=== PATIENT | female | born 1935 | race Caucasian/White ===

== ENCOUNTER 2021-08-10 09:12 | Emergency (ER) | payer MEDICARE, BC ==
[2021-08-10 09:18] VITALS: BP 134/74; PULSE 79
--- NOTE | 2021-08-10 10:26 | EDM.PDOC ---
ED HPI GENERAL MEDICAL PROBLEM - General Chief Complaint: General Stated Complaint: nausea Time Seen by Provider: 08/10/21 09:45 Source of Information: Reports: Patient, Family History Limitations: Reports: No Limitations - History of Present Illness INITIAL COMMENTS - FREE TEXT/NARRATIVE: Patient brought to ER by daughter. [id number] is concerned that her mother "hasn't been herself" for last few weeks. Memory has not been as sharp/thinking has been a bit more foggy. Change coincided with starting Zoloft within the last month. 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 Has hx anxiety. Worse anxiety per [id number] recently as Vane Mohan may ask patient to move to a [facility] because of sight issue. Zoloft prescribed to try to assist with the anxiety. Mild nausea noted by patient when she woke this morning/resolved. Patient also was complaining of some facial numbness today (also resolved) and this led to DIL wanting patient to come to ER. Patient told nurse she did not know why she had to come to ER. She states she feels fine and there is nothing acutely wrong. No other reported changes. No other changes in medicines/supplements per patient. - Related Data Allergies Allergy/AdvReac Type Severity Reaction Status Date / Time brimonidine tartrate Allergy Rash Verified 08/10/21 11:01 [From Alphagan P] codeine Allergy Other Verified 08/10/21 11:02 Penicillins Allergy Hives Verified 08/10/21 11:01 Home Meds: Home Meds metFORMIN HCl [Metformin HCl] 1 tab PO BID 11/15/15 [History] Acetaminophen [Tylenol Extra Strength] 1 tab PO Q6H PRN 08/10/21 [History] Aspirin 325 mg PO DAILY 08/10/21 [History] Carboxymethylcellulos/Glycerin [Refresh Optive Gel Eye Drops] 1 drop .XX BID 08/10/21 [History] Carboxymethylcellulos/Glycerin [Refresh Optive] 1 drop EYEBOTH ASDIRECTED PRN 08/10/21 [History] Carboxymethylcellulose Sodium [Refresh Liquigel 1%] 0 applic .XX BEDTIME 08/10/21 [History] Cholecalciferol (Vitamin D3) [Vitamin D3] 1 tab PO BID 08/10/21 [History] Dorzolamide HCl 1 drop EYEBOTH BID 08/10/21 [History] Fluorometholone [Fluorometholone 0.1% Ophth Susp] 1 drop EYEBOTH BID 08/10/21 [History] L.acidoph,Paracasei, B.lactis [Probiotic] 1 tab PO BID 08/10/21 [History] Losartan [Cozaar] 25 mg PO QPM 08/10/21 [History] Lutein/Minerals/Vit A,C & E [Ocuvite] 1 tab PO DAILY 08/10/21 [History] Magnesium Oxide [Mag-Oxide Magnesium] 40 mg PO BID 08/10/21 [History] Omeprazole Magnesium [Prilosec Otc] 20 mg PO BID 08/10/21 [History] Potassium Chloride 10 meq PO BEDTIME 08/10/21 [History] Sertraline [Zoloft] 25 mg PO DAILY 08/10/21 [History] Simvastatin [Zocor] 10 mg PO BEDTIME 08/10/21 [History] Travoprost [Travatan Z] 1 drop EYEBOTH BEDTIME 08/10/21 [History] acetaZOLAMIDE [Diamox] 125 mg PO BID 08/10/21 [History] Past Medical History HEENT History: Reports: Impaired Vision Other HEENT History: legally blind Cardiovascular History: Reports: High Cholesterol, Hypertension Gastrointestinal History: Reports: GERD Musculoskeletal History: Reports: Arthritis Neurological History: Reports: Neuropathy, Diabetic Endocrine/Metabolic History: Reports: Diabetes, Type II Social & Family History - Tobacco Use Tobacco Use Status *Q: Former Tobacco User Used Tobacco, but Quit: Yes Month/Year Tobacco Last Used: 09/25/1939 Second Hand Smoke Exposure: No - Caffeine Use Caffeine Use: Reports: Coffee Caffeine Use Comment: uses very little coffe, no tea, no soda - Recreational Drug Use Recreational Drug Use: No ED ROS GENERAL - Review of Systems Review Of Systems: See Below Constitutional: Reports: No Symptoms HEENT: Reports: Other (chronic progressive vision loss) Respiratory: Reports: No Symptoms Cardiovascular: Reports: No Symptoms GI/Abdominal: Reports: Nausea. Denies: Abdominal Pain, Black Stool, Bloody Stool, Constipation, Diarrhea, Difficulty Swallowing, Vomiting : Reports: No Symptoms Musculoskeletal: Reports: Other (no acute changes from baseline) Skin: Reports: No Symptoms Neurological: Reports: Other ("foggy" thinking/memory not as sharp as usual). Denies: Confusion, Dizziness, Headache, Numbness, Seizure, Syncope, Trouble Speaking, Change in Speech Psychiatric: Reports: Anxiety (chronic). Denies: Agitation, Confusion, Depression, Hallucinations, Homicidal Ideation, Suicidal Ideation ED EXAM, GENERAL - Physical Exam Exam: See Below Exam Limited By: No Limitations General Appearance: Alert, WD/WN, No Apparent Distress Eye Exam: Bilateral Eye: EOMI, PERRL, Other (cloudy pupil/drooping eyelid right) Ears: Other (hearing aids) Nose: No: Nasal Deformity, Nasal Swelling, Nasal Drainage Throat/Mouth: Normal Lips, Normal Voice, No Airway Compromise Head: Atraumatic, Normocephalic Neck: Supple Respiratory/Chest: No Respiratory Distress, Lungs Clear, Normal Breath Sounds, No Accessory Muscle Use Cardiovascular: Regular Rate, Rhythm, No Edema, No Murmur GI/Abdominal: Soft, Non-Tender, No Distention (Female) Exam: Deferred Rectal (Female) Exam: Deferred Back Exam: No: CVA Tenderness (L), CVA Tenderness (R), Muscle Spasm, Paraspinal Tenderness, Vertebral Tenderness Extremities: Normal Inspection, Normal Range of Motion, Non-Tender, No Pedal Edema, Normal Capillary Refill Neurological: Alert, Oriented, CN II-XII Intact, Normal Cognition, No Motor/Sensory Deficits Psychiatric: Anxious (mild) Skin Exam: Warm, Dry, Intact, Normal Color Course - Vital Signs Last Recorded V/S: Last Vital Signs Temp 36.1 C 08/10/21 09:17 Pulse 79 08/10/21 09:17 Resp 16 08/10/21 09:17 BP 134/74 08/10/21 09:17 Pulse Ox 100 08/10/21 09:17 - Orders/Labs/Meds Orders: Active Orders 24 hr Category Date Time Status Head wo Cont [CT] Stat Exams 08/10/21 09:38 Taken CULTURE URINE [RM] Routine Lab 08/10/21 11:22 Ordered Saline Lock Insert [OM.PC] Routine Oth 08/10/21 10:59 Ordered Labs: Laboratory Tests 08/10/21 08/10/21 08/10/21 Range/Units 10:01 10:01 10:30 WBC 8.2 (4.0-10.2) K/uL RBC 4.37 (3.77-5.09) M/uL Hgb 11.9 (11.7-15.5) g/dL Hct 36.6 (34.0-46.0) % MCV 83.8 L D (84.0-98.0) fL MCH 27.2 L (28.2-33.3) pg MCHC 32.5 (31.7-36.0) g/dL RDW 13.9 (11.2-14.1) % Plt Count 302 (150-350) K/uL Neut % (Auto) 64.6 (45.0-80.0) % Lymph % (Auto) 23.1 (10.0-50.0) % [place] % (Auto) 8.7 (2.0-14.0) % Eos % (Auto) 3.2 (0.0-5.0) % Baso % (Auto) 0.4 (0.0-2.0) % Neut # (Auto) 5.27 (1.40-7.00) K/uL Lymph # (Auto) 1.88 (0.50-3.50) K/uL [place] # (Auto) 0.71 (0.00-1.00) K/uL Eos # (Auto) 0.26 (0.00-0.50) K/uL Baso # (Auto) 0.03 (0.00-0.20) K/uL Sodium 137 (136-145) mmol/L Potassium 4.2 (3.5-5.1) mmol/L Chloride 106 (98-107) mmol/L Carbon Dioxide 19.4 L (21.0-32.0) mmol/L Anion Gap 15.8 H (7-15) meq/L BUN 20 H (7-18) mg/dL Creatinine 0.94 (0.51-1.17) mg/dL Est Cr Clr Drug Dosing TNP Estimated GFR (MDRD) 56 mL/min Glucose 136 H (70-99) mg/dL Calcium 11.2 H (8.5-10.1) mg/dL Magnesium 1.6 L (1.8-2.4) mg/dL Total Bilirubin 0.4 (0.2-1.0) mg/dL AST 13 L (15-37) U/L ALT 19 (12-78) U/L Alkaline Phosphatase 101 (46-116) IU/L Total Protein 6.8 (6.4-8.2) g/dL Albumin 3.6 (3.4-5.0) g/dL Specimen Type Urinvoid Urine Color Yellow Urine Appearance Clear Urine pH 6.0 (5.0-9.0) Ur Specific [place] 1.020 (1.005-1.030) Urine Protein Negative (NEGATIVE) mg/dL Urine Glucose (UA) Negative (NEGATIVE) mg/dL Urine Ketones Negative (NEGATIVE) mg/dL Urine Occult Blood Negative (NEGATIVE) Urine Nitrite Negative (NEGATIVE) Urine Bilirubin Negative (NEGATIVE) Urine Urobilinogen 0.2 (0.2-1.0) E.U./dL Ur Leukocyte Esterase Trace H (NEGATIVE) Urine RBC 0-5 /HPF Urine WBC 5-10 H /HPF Ur Epithelial Cells Few /LPF Urine Bacteria Many H (NONE TO FEW) /HPF Meds: Medications Discontinued Medications Generic Name Dose Route Start Last Admin Trade Name Freq PRN Reason Stop Dose Admin Magnesium Sulfate/Dextrose 1 100 mls @ 100 mls/hr 08/10/21 10:59 08/10/21 11:15 gm/ Premix IV 08/10/21 11:58 100 mls/hr ONETIME ONE Administration Sodium Chloride 10 ml 08/10/21 10:58 Sodium Chloride 0.9% 10 Ml Syringe FLUSH ASDIRECTED PRN Keep Vein Open - Re-Assessments/Exams Free Text/Narrative Re-Assessment/Exam: 08/10/21 11:25 Reviewed option with patient and DIL that included ordering basic labs in addition to obtaining CT to look for acute intracranial changes. Exam nonfocal and unremarkable. Patient and DIL wanted all of the above studies performed. CT negative for acute changes per Radiology. Labs overall unremarkable except for mildly elevated Ca/anion gap and a Mag decreased at 1.6. UA unremarkable but UC ordered as precaution. Differential for this morning's complaints include anxiety and adverse reaction to Zoloft. Patient's complaints of foggy thinking developed after starting the Zoloft. Recommendation to stop Zoloft to see if brain-fog improves made and both patient and DIL support stopping the medications. Patient is taking supplemental magnesium twice daily and is still low. Patient and DIL elected to have additional supplemental mag given in ER as deficiency can exacerbate anxiety. She will need to increase supplemental mag dosing at home. They are to observe for changes and see if things improve once Zoloft washes out. She has been on the Zoloft for less than 6 weeks, thus tapering not required. Follow up with patient's primary recommended in 3 weeks. They can consider trying a different type of anti-anxiety medication at that time if needed. Patient/son/DIL are in agreement with plan. Departure - Departure Time of Disposition: 12:30 Disposition: Home, Self-Care 01 Condition: Good Clinical Impression: Feeling abnormal - Discharge Information *PRESCRIPTION DRUG MONITORING PROGRAM REVIEWED*: Not Applicable *COPY OF PRESCRIPTION DRUG MONITORING REPORT IN PATIENT SOFIE: Not Applicable Referrals: Margot Pacheco NP [Primary Care Provider] - Forms: ED Department Discharge Additional Instructions: Stop the Zoloft. Observe over the next 2-3 weeks if complaints of brain-fog/not feeling like usual self improve. Follow up at clinic in 3 weeks for recheck. Increase the supplemental magnesium dose from 400mg twice a day to 800mg twice a day. Consider switching to magnesium glycinate for better absorption. You could try mag glycinate 500mg twice a day. Get the magnesium level rechecked in 3-4 weeks and again in 2 months to make certain not too high or not too low. Follow up otherwise as needed if additional problems/concerns develop. Sepsis Event Note (ED) - Evaluation Sepsis Screening Result: No Definite Risk - My Orders Last 24 Hours: My Active Orders 08/10/21 09:38 Head wo Cont [CT] Stat 08/10/21 10:59 Saline Lock Insert [OM.PC] Routine 08/10/21 11:22 CULTURE URINE [RM] Routine - Assessment/Plan Last 24 Hours: My Active Orders 08/10/21 09:38 Head wo Cont [CT] Stat 08/10/21 10:59 Saline Lock Insert [OM.PC] Routine 08/10/21 11:22 CULTURE URINE [RM] Routine
[2021-08-10 10:29] LABS: CHLORIDE,CL 106 mmol/L (98-107); SODIUM,NA 137 mmol/L (136-145)
[2021-08-10 10:39] LABS: ANION GAP 15.8 meq/L (7-15)
[2021-08-10] MEDS ORDERED: Sodium Chloride 0.9% 10 ML Syringe FLUSH PRN (10:58)
== END 2021-08-10 12:24 | disposition home or self-care (01) ==
LOC: LL.ED 09:12
DX: R11.0 Nausea (principal); E78.00 Pure hypercholesterolemia, unspecified; I10 Essential (primary) hypertension; E11.9 Type 2 diabetes mellitus without complications; K21.9 Gastro-esophageal reflux disease without esophagitis; Z87.891 Personal history of nicotine dependence; Z79.82 Long term (current) use of aspirin; Z79.899 Other long term (current) drug therapy; Z88.8 Allergy status to other drugs, medicaments and biological substances
CPT/HCPCS: 36415; 70450; 80053; 81001; 83735; 85025; 87086; 87088; 87186; 96365; 99284; 99285-25; J3475